=== PATIENT | female | born 1995 | race Caucasian/White ===

== ENCOUNTER 2018-09-17 13:04 | Inpatient (IN) | payer OTHER ==
[~2018-09-17] VITALS: Ht 162.6 cm; Wt 72.3 kg
[~2018-09-17 13:04] MED LIST: FERR325T5 PO; PREN-93 PO
[2018-09-17 13:17] VITALS: Ht 162.6 cm; Wt 72.3 kg
[2018-09-17] MEDS: MAGNESIUM SULFATE 20 GM/500 ML 500 ML IV SCH (14:34)
[2018-09-17] MEDS ORDERED: OXYTOCIN 30 UNITS/LR 500 ML IV SCH ×3 (15:00)
[2018-09-17] MEDS ORDERED: OXYTOCIN 30 UNITS/LR 500 ML IV PRN (15:00)
[2018-09-17] MEDS ORDERED: BUTORPHANOL 2 MG INJ IV PRN (15:00)
[2018-09-17] MEDS ORDERED: MISOPROSTOL 200 MCG TAB PR PRN (15:00)
[2018-09-17] MEDS ORDERED: CARBOPROST 250 MCG INJ IM PRN (15:00)
[2018-09-17] MEDS ORDERED: LIDOCAINE 1% (MPF) 30 ML INJ INJ PRN (15:00)
[2018-09-17] MEDS ORDERED: MAGNESIUM SULFATE 4 GM/100 ML 100 ML IV SCH (15:00)
[2018-09-17] MEDS ORDERED: IBUPROFEN 600 MG TAB PO PRN (15:00)
[2018-09-17] MEDS ORDERED: CA GLUCONATE (GM) 10% 10ML INJ IV PRN (15:00)
[2018-09-17] MEDS: LACTATED RINGER'S 1,000 ML IV SCH (15:18)
[2018-09-17] MEDS ORDERED: LACTATED RINGER'S 1,000 ML IV PRN (20:17)
[2018-09-18] VITALS (12 sets, daily range): BP systolic 114–136; BP diastolic 72–90; PULSE 74; RESP 16–19
--- NOTE | 2018-09-18 00:39 | PREAC ---
Date/Time of Note Date/Time of Note DATE: 09/18/18 TIME: 00:38 Anesthesia Eval and Record Evaluation Time Pre-Procedure Interview DATE: 09/18/18 TIME: 00:38 Age 23 Sex female NPO: 8 hrs Preoperative diagnosis labor pain Planned procedure epidural Past Medical History Past Medical History: Includes : PIH Surgery & Anesthesia Issues No known issue Meds Anticoagulation: No Beta Jana within 24 hr: No Reason Beta Jana not given: Pt. not on B-Jana Reported Medications Ferrous Sulfate (Ferrous Sulfate) 325 Mg Tablet.dr, 325 MG PO 09/17/18 Vit No.124/Iron/FA ( Vitamin Tablet) 1 Each Tablet, 1 EACH PO, TAB 09/17/18 Current Medications Lactated Ringer's 1,000 ml @ 125 mls/hr Q8H IV Last administered on 09/17/18at 15:18; Admin Dose 125 MLS/HR; Start 09/17/18 at 14:34 Butorphanol Tartrate (Stadol) 2 mg Q2H PRN IV .PAIN SCALE 6-10; Start 09/17/18 at 15:00 Lidocaine (Xylocaine 1% (Mpf)) 30 ml ONCE PRN INJ .EPISIOTOMY; Start 09/17/18 at 15:00 Oxytocin/Lactated Ringer's 500 ml @ 500 mls/hr ONCE POST IV ; Start 09/17/18 at 15:00 Oxytocin/Lactated Ringer's 500 ml @ 125 mls/hr POST IV ; Start 09/17/18 at 15:00 Ibuprofen (Motrin) 600 mg ONCE PRN PO .PAIN 1-5; Start 09/17/18 at 15:00 Oxytocin/Lactated Ringer's 500 ml @ 0 mls/hr ONCE PRN IV .VAGINAL BLEEDING; Start 09/17/18 at 15:00 Carboprost Tromethamine (Hemabate) 250 mcg ONCE PRN IM .VAGINAL BLEEDING; Start 09/17/18 at 15:00 Misoprostol (Cytotec) 1,000 mcg ONCE PRN OR .VAGINAL BLEEDING; Start 09/17/18 at 15:00 Oxytocin/Lactated Ringer's 500 ml @ 0 mls/hr FOR INDUCTION IV Last administered on 09/17/18at 15:56; Admin Dose 1 MLS/HR; Start 09/17/18 at 15:00 Magnesium Sulfate 500 ml @ 50 mls/hr Q10H IV Last administered on 09/17/18at 14:34; Admin Dose 50 MLS/HR; Start 09/17/18 at 14:34 Calcium Gluconate (Ca Gluc) 1 gm ONCE PRN IV FOR MAGNESIUM TOXICITY; Start 09/17/18 at 15:00 Lactated Ringer's 1,000 ml @ 2,000 mls/hr Q30M PRN IV .ANESTHESIA Last administered on 09/18/18at 00:07; Admin Dose 2,000 MLS/HR; Start 09/17/18 at 20:17 Mineral Oil (Muri-Lube) 10 ml ONCE PRN TOP NOTE; Start 09/18/18 at 04:30; Stop 09/18/18 at 12:00 Meds reviewed: Yes Allergies Coded Allergies: No Known Allergy (Unverified , 09/17/18) Allergies Reviewed: Yes Labs/Studies Labs Reviewed: Reviewed by anesthesiologist Result Diagram: 09/17/18 1343 09/17/18 1343 Laboratory Tests 09/17/18 13:43 Blood Bank Test 09/17/18 13:43 Antibody Screen NEGATIVE Blood Type B POSITIVE Rh Immune Globulin Candidate NO test: Positive Studies: ECG (n/a), CXR (n/a) Pre-procedure Exam Airway: Adequate mouth opening Mallampati: Mallampati I Teeth: Normal Lung: Normal Heart: Normal ASA Physical Status ASA physical status: 2 Emergency: None Planned Anesthetic Neuraxial: Epidural Pre-operative Attestations Prior to commencing anesthesia and surgery, the patient was re-evaluated, there was verification of: *The patient's identity *The results of appropriate recent lab work and preoperative vital signs *The above evaluation not changing prior to induction *Anesthetic plan, risk benefits, alternative and complications discussed with patient/family; questions answered; patient/family understands, accepts and wishes to proceed. CAMDEN HAILE MD Sep 18, 2018 00:39
[2018-09-18] MEDS ORDERED: FENTAnyl 2MCG/ML-ROPIV 0.2% 100 ML ONE (00:48)
--- NOTE | 2018-09-18 00:55 | PAC ---
Date/Time of Note Date/Time of Note DATE: 09/18/18 TIME: 00:54 Post-Anesthesia Notes Post-Anesthesia Note Last documented vital signs bp134/79 sat 96% HR 94, Rr19, temp 98.3 Activity: WNL Respiratory function: WNL Cardiovascular function: WNL Mental status: Baseline Pain reasonably controlled: Yes Hydration appropriate: Yes Nausea/Vomiting absent: No CADMEN HAILE MD Sep 18, 2018 00:55
[2018-09-18] MEDS ORDERED: DIPHENHYDRAMINE 50 MG INJ IV PRN (01:00)
[2018-09-18] MEDS ORDERED: NALOXONE (0.4 MG/ML) INJ IV PRN (01:00)
[2018-09-18] MEDS ORDERED: FENTAnyl 2MCG/ML-ROPIV 0.2% 100 ML BAG EPI SCH (01:00)
[2018-09-18] MEDS ORDERED: ONDANSETRON 4 MG INJ IV PRN ×2 (01:00→08:30)
[2018-09-18] MEDS: LACTATED RINGER'S 1,000 ML IV SCH ×4 (01:23→22:34)
[2018-09-18] MEDS: MAGNESIUM SULFATE 20 GM/500 ML 500 ML IV SCH ×3 (02:58→20:34)
[2018-09-18] MEDS ORDERED: MINERAL OIL LIGHT 10 ML VIAL TOP PRN (04:30)
[2018-09-18] MEDS ORDERED: OXYTOCIN 30 UNITS/LR 500 ML IV SCH (08:03)
[2018-09-18] MEDS: LACTATED RINGER'S 1,000 ML IV* SCH ×2 (08:03→16:03)
--- NOTE | 2018-09-18 08:03 | OPPN ---
Date/Time of Note Date/Time of Note DATE: 09/18/18 TIME: 08:02 Operative Report Planned Procedure Procedure date Sep 18, 2018 Procedure(s) Performed by see signature line Line Assigner: A 2nd Line Assigner none Pre-procedure diagnosis 38 WEEKS IUP IN LABOR [id number] Anesthesia Type: [id number] epidural Post-Procedure Post-procedure diagnosis 38WEEKS IUP IN LABOR Findings Live Baby , Apgars 9and9, weight 6LBS 1 OZ Estimated Blood Loss: 300 - 400 mls Specimen(s) none Grafts/Implant(s) none Complication(s) none MIHIR MAGANA MD Sep 18, 2018 08:03
[2018-09-18] MEDS ORDERED: LANOLIN HPA 1 PKT TOP PRN (08:30)
[2018-09-18] MEDS ORDERED: BENZOCAINE 20% 56 ML SPRAY TOP PRN (08:30)
[2018-09-18] MEDS ORDERED: WITCH HAZEL/GLYCERIN PAD PR PRN (08:30)
[2018-09-18] MEDS ORDERED: HYDROCODONE/APAP (5/325) TAB PO PRN ×2 (08:30)
[2018-09-18] MEDS ORDERED: MAGNESIUM HYDROXIDE 30ML CUP PO PRN (08:30)
[2018-09-18] MEDS ORDERED: NA PHOSPHATE/BIPHOS 133 ML ENEMA PR PRN (08:30)
[2018-09-18] MEDS ORDERED: METHYLERGONOVINE 0.2 MG TAB PO PRN (08:30)
[2018-09-18] MEDS ORDERED: CARBOPROST 250 MCG INJ IM PRN (08:30)
[2018-09-18] MEDS ORDERED: OXYTOCIN 30 UNITS/LR 500 ML IV PRN (08:30)
[2018-09-18] MEDS ORDERED: DIPHENHYDRAMINE 25 MG CAP PO PRN (08:30)
[2018-09-18] MEDS ORDERED: MISOPROSTOL 200 MCG TAB PR PRN (08:30)
[2018-09-18] MEDS ORDERED: METHYLERGONOVINE 0.2 MG INJ IM PRN (08:30)
[2018-09-18] MEDS ORDERED: ZOLPIDEM 5 MG TAB PO PRN (08:30)
[2018-09-18] MEDS: SENNA/DOCUSATE NA (8.6MG/50MG) TAB PO SCH ×2 (10:28→21:11)
[2018-09-18] MEDS: IBUPROFEN 800 MG TAB PO PRN ×2 (14:05→21:11)
[2018-09-19] MEDS: LACTATED RINGER'S 1,000 ML IV* SCH (00:03)
[2018-09-19 00:05] VITALS: BP 125/75; PULSE 69; RESP 18
[2018-09-19 04:03] VITALS: BP 113/73; PULSE 70; RESP 18
[2018-09-19] MEDS: IBUPROFEN 800 MG TAB PO PRN ×3 (05:42→23:26)
--- NOTE | 2018-09-19 06:33 | PREOPHP ---
DATE OF ADMISSION: 09/17/2018 HISTORY OF PRESENT ILLNESS: This is a 23-year-old lady, 2, para 0 with 1 and her EDC 09/26/2018, at 38 and 5/7 weeks, admitted to labor and delivery area because of -induced hypertension. She was sent to the hospital by Dr. Ferrari of [facility] because of high blood pressure and edema and for delivery. She had care at the [facility] and care was complicated by PIH. PAST PERSONAL HISTORY: No history of diabetes, TB, asthma. ALLERGIES: NO ALLERGIES. SOCIAL HISTORY: The patient does not smoke. She does not drink. MEDICATIONS: She does not take any drugs except her iron and vitamins. GYNECOLOGIC HISTORY: She had menarche at the age of 9, every 28 days interval, 3 to 4 days duration, and moderate in amount. FAMILY HISTORY: Noncontributory. OBSTETRICAL HISTORY: She is 2, para 0. She had an in 2016. REVIEW OF SYSTEMS: CARDIOVASCULAR: No chest pains. RESPIRATORY: No cough. GASTROINTESTINAL: No diarrhea, no vomiting. GENITOURINARY: No dysuria. PHYSICAL EXAMINATION: GENERAL: Reveals a conscious, coherent lady and in no acute distress. VITAL SIGNS: Blood pressure on admission was running between 140 to 150/90 to 98, pulse rate 88 per minute, respirations 16 per minute. BREASTS, HEART AND LUNGS: Within normal limits. ABDOMEN: Soft, no tenderness noted. Fundic height 36 cm. heart tones 140 per minute. PELVIC: On admission revealed the cervix to be 1 to 2 cm dilated, according to the nurse soft, station -2 in cephalic presentation with the bag of water intact. EXTREMITIES: 1+ pedal edema. ADMITTING DIAGNOSIS: A 38 and 5/7 weeks intrauterine with severe -induced hypertension. The patient had all the PIH workup and was planned to be introduced. The estimated weight was ordered. EFW is about 7 pounds 2 ounces. So, she was given Pitocin augmentation followed by magnesium sulfate as her blood pressure was 140/90 or greater x3. So, the patient progressed well. At 1750 p.m., I reevaluated the patient. She was 2 to 3 cm dilated, 80% and 0 station with the bag of water intact with good blood, so she was continued on Pitocin augmentation. At 2:00 a.m. on 09/18/2018, she was 4 cm dilated, 100% effaced, station 0 with the bag of water intact and bulging. Artificial rupture of membranes. scalp electrode and IUPC were inserted. She was continued on Pitocin augmentation and she progressed well. When she was completely dilated, the epidural was stopped and was coached to push and she pushed well. She had received labor epidural. Dictated By: MIHIR MAGANA MD NS/NTS Conf#: [id number] DID#: [id number] CC: JUDD FERRARI MD;*EndCC* MTDD
[2018-09-19] MEDS: LACTATED RINGER'S 1,000 ML IV SCH (06:34)
[2018-09-19] MEDS: MAGNESIUM SULFATE 20 GM/500 ML 500 ML IV SCH (06:34)
[2018-09-19 08:00] VITALS: BP 121/80; PULSE 66; RESP 18
--- NOTE | 2018-09-19 09:20 | OPR ---
DATE OF OPERATION: 09/18/2018 This is a 23-year-old lady, 2, para 0 with 1 , EDC 09/26/2018 at 38-5/7 weeks admitte d for induction for severe -induced hypertension. HISTORY OF PRESENT ILLNESS: See dictated history and physical. PHYSICAL EXAMINATION: See dictated history and physical. ADMITTING DIAGNOSIS: 38 and 5/7 weeks intrauterine . The patient was given Pitocin augmentation. She was given magnesium sulfate and she had received lab or epidural and the patient progressed well. She had a normal spontaneous vaginal delivery on 2018 at 07:04 a.m., delivering a healthy baby boy, Apgars 9 and 9, 2880 grams, 6 pounds 6 ounces over a second-degree midline perineal tear and a first degree right upper labial tear. The placenta was delivered spontaneously and complete. Manual exploration of the uterus revealed no membranes l eft behind. Cervix, vagina, and vulva were free of hematoma. The position was direct occiput anteri or. There were 3 vessels in the cord. The placenta was normal with a smooth shiny side and a pinkish maternal side. A second-degree midline perineal tear was repaired in layers using 2-0 chromi c with labor epidural. Right upper labial tear 1 inch was also repaired with continuous suture with 2-0 chromic. After the baby was born, the uterus was noted to be hypotonic. The uterus was massaged . Pitocin was run fast and she was given Cytotec 1000 mcg rectally. The uterus contracted. The pat ient tolerated the procedure well. ESTIMATED BLOOD LOSS: About 400 mL. Vital signs were stable during and after the delivery. Dictated By: MIHIR MAGANA MD NS/NTS Conf#: [id number] DID#: [id number] CC: JUDD FERRARI MD;*EndCC*
[2018-09-19] MEDS: SENNA/DOCUSATE NA (8.6MG/50MG) TAB PO SCH ×2 (09:27→20:55)
--- NOTE | 2018-09-19 13:31 | PN ---
Date/Time of Note Date/Time of Note DATE: 09/19/18 TIME: 13:30 Assessment/Plan VTE Prophylaxis Risk score (from Ns)>0 risk: 1 SCD applied (from Ns): No SCD contraindicated: low risk/ambulating Pharmacological prophylaxis: NA/contraindicated Pharm contraindication: low risk/ambulating Lines/Catheters IV C[facility]ter Type [facility]from [facility] Saline Lock Assessment/Plan Assessment/Plan POST DAY 1 CHRONIC IRON DEFICIENCY ANEMIA HOME TOMORROW RETURN TO CLINIC IN 2 WEEKS CONTINUE WITH VITAMINS OD AND FERROUS SULFATE PO TID DIET ADVISED COUNSELED INSTRUCTED CALL OFFICE IF THERE IS ANY PROBLEMS OR CONCERN Result Diagram: 09/19/18 0624 09/17/18 1343 Results 24hrs Laboratory Tests Test 09/18/18 18:17 09/19/18 00:28 09/19/18 06:24 Magnesium Level 6.4 *H 4.1 #H 3.2 H White Blood Count 13.7 #H Red Blood Count 2.98 #L Hemoglobin 9.5 L Hematocrit 27.5 L Mean Corpuscular Volume 92.3 Mean Corpuscular Hemoglobin 31.9 Mean Corpuscular Hemoglobin Concent 34.5 Red Cell Distribution Width 14.2 Platelet Count 158 Mean Platelet Volume 12.0 H Immature Granulocytes % 0.600 H Neutrophils % 77.5 H Lymphocytes % 13.8 L Monocytes % 6.7 Eosinophils % 1.1 Basophils % 0.3 Nucleated Red Blood Cells % 0.0 Immature Granulocytes # 0.080 H Neutrophils # 10.6 H Lymphocytes # 1.9 Monocytes # 0.9 Eosinophils # 0.2 Basophils # 0.0 Nucleated Red Blood Cells # 0.0 Subjective 24 Hr Interval Summary Free Text/Dictation FEELS GOOD, GOOD URINE OUTPUT, GOOD BOWEL MOVEMENT Exam/Review of Systems Exam Vitals Vital Signs Date Temp Pulse Resp B/P (MAP) Pulse Ox O2 O2 Flow FiO2 Time Delivery Rate 09/19/18 98.3 66 18 121/80 Room Air 08:00 (94) 09/18/18 96 10:30 Intake and Output 09/18/18 09/18/18 09/19/18 1515:00 23:00 07:00 IntakeIntake Total 1175 ml 850 ml OutputOutput Total 200 ml 750 ml BalanceBalance 975 ml 100 ml Exam VITAL SIGNS STABLE: YES AFEBRILE: YES BREAST NOT ENGORGED, NON-TENDER, NO APPRECIABLE MASS: YES LUNGS CLEAR, NO RALES, WHEEZES, RHONCHI: YES SINUS RHYTHM WITHOUT MURMUR: YES ABDOMEN: NON-TENDER FUNDUS: BELOW UMBILICUS BOWEL SOUNDS: PRESENT UTERUS: FIRM TEAR HEALING WELL LOCHIA: LIGHT DEEP TENDON REFLEXES: 0 EXTREMITIES: NO CALF TENDERNESS EDEMA SCALE: NONE Results Results 24hrs Laboratory Tests Test 09/18/18 18:17 09/19/18 00:28 09/19/18 06:24 Magnesium Level 6.4 *H 4.1 #H 3.2 H White Blood Count 13.7 #H Red Blood Count 2.98 #L Hemoglobin 9.5 L Hematocrit 27.5 L Mean Corpuscular Volume 92.3 Mean Corpuscular Hemoglobin 31.9 Mean Corpuscular Hemoglobin Concent 34.5 Red Cell Distribution Width 14.2 Platelet Count 158 Mean Platelet Volume 12.0 H Immature Granulocytes % 0.600 H Neutrophils % 77.5 H Lymphocytes % 13.8 L Monocytes % 6.7 Eosinophils % 1.1 Basophils % 0.3 Nucleated Red Blood Cells % 0.0 Immature Granulocytes # 0.080 H Neutrophils # 10.6 H Lymphocytes # 1.9 Monocytes # 0.9 Eosinophils # 0.2 Basophils # 0.0 Nucleated Red Blood Cells # 0.0 Medications Medication Current Medications Butorphanol Tartrate (Stadol) 2 mg Q2H PRN IV .PAIN SCALE 6-10; Start 09/17/18 at 15:00 Lidocaine (Xylocaine 1% (Mpf)) 30 ml ONCE PRN INJ .EPISIOTOMY; Start 09/17/18 at 15:00 Oxytocin/Lactated Ringer's 500 ml @ 500 mls/hr ONCE POST IV ; Start 09/17/18 at 15:00 Oxytocin/Lactated Ringer's 500 ml @ 125 mls/hr POST IV Last adminis tered on 09/18/18at 07:32; Admin Dose 125 MLS/HR; Start 09/17/18 at 15:00 Oxytocin/Lactated Ringer's 500 ml @ 0 mls/hr ONCE PRN IV .VAGINAL BLEEDING; Start 09/17/18 at 15:00 Carboprost Tromethamine (Hemabate) 250 mcg ONCE PRN IM .VAGINAL BLEEDING; Start 09/17/18 at 15:00 Misoprostol (Cytotec) 1,000 mcg ONCE PRN VA .VAGINAL BLEEDING Last administered on 09/18/18at 07:14; Admin Dose 1,000 MCG; Start 09/17/18 at 15:00 Oxytocin/Lactated Ringer's 500 ml @ 0 mls/hr FOR INDUCTION IV Last administered on 09/17/18at 15:56; Admin Dose 1 MLS/HR; Start 09/17/18 at 15:00 Calcium Gluconate (Ca Gluc) 1 gm ONCE PRN IV FOR MAGNESIUM TOXICITY; Start 09/17/18 at 15:00 Diphenhydramine HCl (Benadryl) 25 mg Q4H PRN IV .PRURITUS; Start 09/18/18 at 01:00 Ondansetron HCl (Zofran Inj) 4 mg Q6H PRN IV .NAUSEA/VOMITING Last administered on 09/18/18at 06:10; Admin Dose 4 MG; Start 09/18/18 at 01:00 Naloxone HCl (Narcan) 0.2 mg Q2M PRN IV .RESP RATE; Start 09/18/18 at 01:00 Fentanyl/ Ropivacaine 100 ml EPIDURAL (PCEA) EPI ; Start 09/18/18 at 01:00 Lactated Ringer's 1,000 ml @ 125 mls/hr Q8H IV* ; Start 09/18/18 at 08:03 Methylergonovine Maleate (Methergine) 0.2 mg Q6H PRN PO .VAGINAL BLEED; Start 09/18/18 at 08:30 Ondansetron HCl (Zofran Inj) 4 mg Q6H PRN IV NAUSEA/VOMITING; Start 09/18/18 at 08:30 Diphenhydramine HCl (Benadryl) 25 mg Q6H PRN PO .PRUTITUS; Start 09/18/18 at 08:30 Zolpidem Tartrate (Ambien) 5 mg QHS PRN PO .INSOMNIA; Start 09/18/18 at 08:30 Senna/Docusate Sodium (Senokot-S) 1 tab BID PO Last administered on 09/19/18at 09:27; Admin Dose 1 TAB; Start 09/18/18 at 09:00 Magnesium Hydroxide (Milk Of Mag) 30 ml Q12H PRN PO .CONSTIPATION; Start 09/18/18 at 08:30 Sodium Biphosphate/ Sodium Phosphate (Fleet Enema) 133 ml DAILY PRN VA .CONSTIPATION; Start 09/18/18 at 08:30 Witch Teodora/ Glycerin (Tucks Pads) 1 pad BEDSIDE MEDICATION PRN VA .HEMORRHOID/EPISIOTOMY PAIN Last administered on 09/18/18at 10:28; Admin Dose 1 PAD; Start 09/18/18 at 08:30 Benzocaine (Dermoplast [place]) 1 spray BEDSIDE MEDICATION PRN TOP .HEMMORHOID/EPISIOTOMY PAIN Last administered on 09/18/18at 10:28; Admin Dose 1 SPRAY; Start 09/18/18 at 08:30 Lanolin (Lanolin Hpa) 1 applic BEDSIDE MEDICATION PRN TOP .NIPPLES Last administered on 09/18/18at 10:28; Admin Dose 1 APPLIC; Start 09/18/18 at 08:30 Measles/Mumps/ Rubella Vaccine Live (Mmr Ii Vaccine) 0.5 ml ONCE ONCE SC* ; Start 09/20/18 at 09:00; Stop 09/20/18 at 09:01 Diphtheria/ Tetanus/Acell Pertussis (Adacel) 0.5 ml ONCE ONCE IM* ; Start 09/20/18 at 09:00; Stop 09/20/18 at 09:01 Varicella Virus Vaccine Live (Varivax Vaccine With Diluent) 1,350 unit ONCE ONCE SC* ; Start 09/20/18 at 09:00; Stop 09/20/18 at 09:01 Oxytocin/Lactated Ringer's 500 ml @ 0 mls/hr ONCE PRN IV .VAGINAL BLEEDING; Start 09/18/18 at 08:30 Methylergonovine Maleate (Methergine) 0.2 mg ONCE PRN IM .VAGINAL BLEEDING; Start 09/18/18 at 08:30 Carboprost Tromethamine (Hemabate) 250 mcg ONCE PRN IM .VAGINAL BLEEDING; Start 09/18/18 at 08:30 Misoprostol (Cytotec) 1,000 mcg ONCE PRN VA .VAGINAL BLEEDING; Start 09/18/18 at 08:30 Ibuprofen (Motrin) 800 mg Q6H PRN PO MILD PAIN LEVEL 1-3 Last administered on 09/19/18at 05:42; Admin Dose 800 MG; Start 09/18/18 at 08:30 Acetaminophen/ Hydrocodone Bitart (Chestnut (5/325)) 1 tab Q4H PRN PO MODERATE PAIN LEVEL 4-6; Start 09/18/18 at 08:30 Acetaminophen/ Hydrocodone Bitart (Chestnut (/325)) 2 tab Q4H PRN PO MODERATE PAIN LEVEL 4-6; Start 09/18/18 at 08:30 MIHIR MAGANA MD Sep 19, 2018 13:31
[2018-09-19 16:00] VITALS: BP 111/72; PULSE 70; RESP 18
[2018-09-19 20:00] VITALS: BP 130/80; PULSE 67; RESP 18
[2018-09-20] VITALS: BP 124/74; PULSE 70; RESP 21
[2018-09-20 03:25] VITALS: BP 128/66; RESP 18
[2018-09-20 08:30] VITALS: BP 123/84; PULSE 71; RESP 20
[2018-09-20] MEDS ORDERED: VARICELLA VACCINE LIVE/PF 1,350 UNIT/0.5 ML ML SC* ONE (09:00)
[2018-09-20] MEDS: SENNA/DOCUSATE NA (8.6MG/50MG) TAB PO SCH (09:00)
[2018-09-20] MEDS ORDERED: MEASLES,MUMPS,RUBELLA VACCINE INJ SC* ONE (09:00)
[2018-09-20] MEDS ORDERED: DIPHTH/TET/ACEL PERTUSS (ADULT) 0.5 ML VIAL IM* ONE (09:00)
[2018-09-20 15:30] VITALS: BP 118/78; PULSE 76; RESP 20
--- NOTE | 2018-09-21 17:24 | DELSUM ---
Delivery Summary A-C Datetime Report Generated by CPN: 09/21/2018 17:24 DELIVERY PERSONNEL Inspector Final Assembly Mechanical: Tersigni, Fiona MATERNAL INFORMATION Delivery Anesthesia: Epidural Medications in Delivery: LR with 30 units of pitocin Delivery QBL (ml): 411 Placenta Cultured: No Maternal Complications: Other Other Maternal Complications: GEST.HTN LABOR SUMMARY EDC: 09/26/2018 00:00 No. Babies in Womb: 1 Attempted: No Labor Anesthesia: Epidural LABOR INFORMATION Reason for Induction: Gest. HTN/PreEclam/Eclamp Onset of Labor: 09/17/2018 17:50 Complete Dilatation: 09/18/2018 06:47 Oxytocin: Induction Group B Beta Strep: Negative Antibiotics # of Doses: 0 Steroids Given: None Reason Steroids Not Administered: Not Applicable MEMBRANES Membranes Rupture Method: Artificial Rupture of Membranes: 09/18/2018 01:54 Length of Rupture (hr): 5.17 Amniotic Fluid Color: Clear Amniotic Fluid Amount: Large Amniotic Fluid Odor: None STAGES OF LABOR Stage 1 hr: 12 Stage 1 min: 57 Stage 2 hr: 0 Stage 2 min: 17 Stage 3 hr: 0 Stage 3 min: 2 Total Time in Labor hr: 13 Total Time in Labor min: 16 VAGINAL DELIVERY Episiotomy: None Laceration Extension: Second Degree Laceration Type: Perineal Laceration Repair: Yes Initial Vag Sponge Count: 10+10 Final Vag Sponge Count: 20 Initial Vag Sharps Count: 1+2 Final Vag Sharps Count: 3 Sponge Count Correct: Yes; Vaginal Sweep Performed Sharps Count Correct: Yes BABY A INFORMATION Infant Delivery Date/Time: 09/18/2018 07:04 Method of Delivery: Vaginal Born in Route : No : N/A Forceps: N/A Vacuum Extraction: N/A Shoulder Dystocia : N/A SHOULDER DYSTOCIA BABY A Infant Delivery Date/Time: 09/18/2018 07:04 PRESENTATION/POSITION BABY A Presentation: Cephalic Cephalic Presentation: Vertex Vertex Position: Left Occipital Anterior Breech Presentation: N/A PLACENTA INFORMATION BABY A Placenta Delivery Time : 09/18/2018 07:06 Placenta Method of Delivery: Expressed Placenta Status: Delivered SCORES BABY A Heart Rate 1 min: >100 bpm Resp Effort 1 min: Good Cry Reflex Irritability 1 min: Cough/Sneeze/Pulls Away Muscle Tone 1 min: Active Motion Color 1 min: Body [place], Extremit Blue Resuscitation Effort 1 min: Tactile Stimulation SCORE 1 MIN: 9 Heart Rate 5 min: >100 bpm Resp Effort 5 min: Good Cry Reflex Irritability 5 min: Cough/Sneeze/Pulls Away Muscle Tone 5 min: Active Motion Color 5 min: Body [place], Extremit Blue Resuscitation Effort 5 min: Tactile Stimulation SCORE 5 MIN: 9 INFORMATION BABY A Gestational Age at Delivery: 38.6 Gestational Status: Early Term- 37- 38.6 Weeks Infant Outcome : Liveborn, with signs of life Condition : Stable Infant Sex: Male IDENTIFICATION/MEDS BABY A ID Band Number: [id number] ID Band Location: Right Leg; Left Arm Sensor Applied: Yes Sensor Number: [id number] Sensor Location : Cord Clamp Vitamin K Given : Not Given Erythromycin Given: Not Given WEIGHT/LENGTH BABY A Infant Birthweight (gm): 2880 Infant Weight (lb): 6 Weight (oz): 6 Infant Length (in): 20.00 Length (cm): 50.80 CORD INFORMATION BABY A No. Cord Vessels: 3 Nuchal Cord : N/A Cord Blood Taken: Yes Suction: Mouth; Nose ASSESSMENT BABY A Complications: Multiple Variable Decels Physical Findings at Delivery: Within Normal Limits Infant Respirations: Appears Normal Network [employer] Advisor/ALS Called : Yes Care By: Kalie Francois RN Transferred To: Remains with Mother
--- NOTE | 2018-09-21 17:25 | DELSUM ---
Delivery Summary A-C Datetime Report Generated by CPN: 09/21/2018 17:25 DELIVERY PERSONNEL Certified Dietary Manager: Tersigni, Fiona MATERNAL INFORMATION Delivery Anesthesia: Epidural Medications in Delivery: LR with 30 units of pitocin Delivery QBL (ml): 411 Placenta Cultured: No Maternal Complications: Other Other Maternal Complications: GEST.HTN LABOR SUMMARY EDC: 09/26/2018 00:00 No. Babies in Womb: 1 Attempted: No Labor Anesthesia: Epidural LABOR INFORMATION Reason for Induction: Gest. HTN/PreEclam/Eclamp Onset of Labor: 09/17/2018 17:50 Complete Dilatation: 09/18/2018 06:47 Oxytocin: Induction Group B Beta Strep: Negative Antibiotics # of Doses: 0 Steroids Given: None Reason Steroids Not Administered: Not Applicable MEMBRANES Membranes Rupture Method: Artificial Rupture of Membranes: 09/18/2018 01:54 Length of Rupture (hr): 5.17 Amniotic Fluid Color: Clear Amniotic Fluid Amount: Large Amniotic Fluid Odor: None STAGES OF LABOR Stage 1 hr: 12 Stage 1 min: 57 Stage 2 hr: 0 Stage 2 min: 17 Stage 3 hr: 0 Stage 3 min: 2 Total Time in Labor hr: 13 Total Time in Labor min: 16 VAGINAL DELIVERY Episiotomy: None Laceration Extension: Second Degree Laceration Type: Perineal Laceration Repair: Yes Initial Vag Sponge Count: 10+10 Final Vag Sponge Count: 20 Initial Vag Sharps Count: 1+2 Final Vag Sharps Count: 3 Sponge Count Correct: Yes; Vaginal Sweep Performed Sharps Count Correct: Yes BABY A INFORMATION Infant Delivery Date/Time: 09/18/2018 07:04 Method of Delivery: Vaginal Born in Route : No : N/A Forceps: N/A Vacuum Extraction: N/A Shoulder Dystocia : N/A SHOULDER DYSTOCIA BABY A Infant Delivery Date/Time: 09/18/2018 07:04 PRESENTATION/POSITION BABY A Presentation: Cephalic Cephalic Presentation: Vertex Vertex Position: Left Occipital Anterior Breech Presentation: N/A PLACENTA INFORMATION BABY A Placenta Delivery Time : 09/18/2018 07:06 Placenta Method of Delivery: Expressed Placenta Status: Delivered SCORES BABY A Heart Rate 1 min: >100 bpm Resp Effort 1 min: Good Cry Reflex Irritability 1 min: Cough/Sneeze/Pulls Away Muscle Tone 1 min: Active Motion Color 1 min: Body [place], Extremit Blue Resuscitation Effort 1 min: Tactile Stimulation SCORE 1 MIN: 9 Heart Rate 5 min: >100 bpm Resp Effort 5 min: Good Cry Reflex Irritability 5 min: Cough/Sneeze/Pulls Away Muscle Tone 5 min: Active Motion Color 5 min: Body [place], Extremit Blue Resuscitation Effort 5 min: Tactile Stimulation SCORE 5 MIN: 9 INFORMATION BABY A Gestational Age at Delivery: 38.6 Gestational Status: Early Term- 37- 38.6 Weeks Infant Outcome : Liveborn, with signs of life Condition : Stable Infant Sex: Male IDENTIFICATION/MEDS BABY A ID Band Number: [id number] ID Band Location: Right Leg; Left Arm Sensor Applied: Yes Sensor Number: [id number] Sensor Location : Cord Clamp Vitamin K Given : Not Given Erythromycin Given: Not Given WEIGHT/LENGTH BABY A Infant Birthweight (gm): 2880 Infant Weight (lb): 6 Weight (oz): 6 Infant Length (in): 20.00 Length (cm): 50.80 CORD INFORMATION BABY A No. Cord Vessels: 3 Nuchal Cord : N/A Cord Blood Taken: Yes Suction: Mouth; Nose ASSESSMENT BABY A Complications: Multiple Variable Decels Physical Findings at Delivery: Within Normal Limits Infant Respirations: Appears Normal [employer] Professor/ALS Called : Yes Care By: Kalie Francois RN Transferred To: Remains with Mother
--- NOTE | 2018-09-21 20:34 | DS ---
DATE OF ADMISSION: 09/17/2018 DATE OF DISCHARGE: 09/20/2018 This is a 23-year-old lady, 2, para 0 with 1 , EDC 09/26/2018 at 38 and 5/7 weeks, ad mitted to labor and delivery area because of -induced hypertension. HISTORY OF PRESENT ILLNESS: See dictated history and physical. PHYSICAL EXAMINATION: See dictated history and physical. ADMITTING DIAGNOSIS: A 38 and 5/7 weeks' intrauterine with -induced hypertension. The patient was given Pitocin augmentation and she progressed well. She received labor epidural. Cheikh vaughn had a normal spontaneous vaginal delivery and delivered a healthy baby boy, Apgars 9 and 9, baby we ighing 6 pounds and 6 ounces at 2880 grams over a second-degree midline perineal tear. She tolerated the delivery well. She did have good course. She was on general diet. She had good bow el movement postoperatively. She was discharged home in good and stable condition on general diet an d activity was restricted. She developed atony. She was given Cytotec 100 mcg rectally. The uterus contracted. She was discharged home on the second day on general diet and act ivity was restricted. She was counseled. She was instructed. She was told to come to the clinic in 3 days. Hematocrit on discharge was 27.5, hemoglobin 9.5. FINAL DIAGNOSES: 1. A 38 and 6/7 weeks' intrauterine in labor, delivered. 2. Severe -induced hypertension. 3. atony. 4. Chronic iron deficiency anemia. Dictated By: MIHIR MAGANA MD NS/NTS Conf#: [id number] DID#: [id number] CC: JUDD FERRARI MD;*EndCC*
== END 2018-09-20 17:10 | disposition home or self-care (01) | DRG 807 ==
LOC: OBT 13:04 → L-D 13:06 → OBT 14:30 → L-D 14:30 → PP1 09-18 08:59
PROVIDERS: ADMIT Obstetrics & Gynecology; ATTEND Obstetrics & Gynecology
PROC: 10E0XZZ Delivery of Products of Conception, External Approach (ICD-10-PCS; principal; 2018-09-18)
PROC: 0KQM0ZZ Repair Perineum Muscle, Open Approach (ICD-10-PCS; 2018-09-18)
PROC: 10H07YZ Insertion of Other Device into Products of Conception, Via Natural or Artificial Opening (ICD-10-PCS; 2018-09-18)
PROC: 10H073Z Insertion of Monitoring Electrode into Products of Conception, Via Natural or Artificial Opening (ICD-10-PCS; 2018-09-18)
DX: O13.4 Gestational [pregnancy-induced] hypertension without significant proteinuria, complicating childbirth (principal); O70.1 Second degree perineal laceration during delivery; O75.89 Other specified complications of labor and delivery; O99.02 Anemia complicating childbirth; Z3A.38 38 weeks gestation of pregnancy; Z37.0 Single live birth
CPT/HCPCS: 62322; 76815; 76818; 80053; 81003; 83735; 84560; 85025; 85384; 85610; 85730; 86592; 86850; 86900; 86901; 87340; 90716; G0463; J2405; J2590; J3010; J3475; J7120